=== PATIENT | female | born 1950 | race Caucasian/White ===

== ENCOUNTER 2025-02-10 12:05 | Emergency (ER) | payer MEDICARE, BC ==
[2025-02-10] MEDS: Metoprolol Tartrate 5 MG/5 ML SDV IVPUSH ONE (12:33)
[2025-02-10 12:35] LABS: BASOPHILS ABSOLUTE AUTO 0.1 x10-3/uL (0.0-0.1); BASOPHILS PERCENT AUTO 0.9 % (0.2-1.5); EOSINOPHILS ABSOLUTE AUTO 0.2 x10-3/uL (0.0-0.8); EOSINOPHILS PERCENT AUTO 2.1 % (0.6-8.1); HEMATOCRIT 42.4 % (34.2-48.2); HEMOGLOBIN 14.6 g/dL (11.4-15.5); LYMPHOCYTES ABSOLUTE AUTO 3.1 x10-3/uL (1.0-4.4); MEAN CORPUSCULAR HEMOGLOBIN 29.5 pg (23.9-33.9); MEAN CORPUSCULAR HGB CONC 34.4 g/dL (31.9-34.8); MEAN CORPUSCULAR VOLUME 85.6 fL (76.7-100.5); MEAN PLATELET VOLUME 9.8 fL (7.1-12.4); MONOCYTES ABSOLUTE AUTO 0.6 x10-3/uL (0.3-1.0); MONOCYTES PERCENT AUTO 8.2 % (4.4-15.7); NEUTROPHILS PERCENT AUTO 49.8 % (30.8-76.2); PLATELET COUNT,PLT 216 x10(3)uL (151-488); RED BLOOD CELL COUNT 4.95 x10(6)uL (3.60-5.20); WHITE BLOOD CELL COUNT,WBC 7.9 x10-3/uL (3.0-10.3)
[2025-02-10 12:43] LABS: A/G RATIO 0.8; ALANINE AMINOTRANSFERASE,ALT 24 U/L (12-36); ALBUMIN 3.5 g/dL (3.2-4.6); ALKALINE PHOSPHATASE 112 IU/L (56-112); ASPARTATE AMNIOTRANSFERASE,AST 14 IU/L (5-25); BILIRUBIN TOTAL 0.6 mg/dL (0.1-1.3); BLOOD UREA NITROGEN,BUN 30 mg/dL (7-18); CARBON DIOXIDE,CO2 25 mmol/L (21-32); CHLORIDE,CL 100 mmol/L (100-110); CREATININE 1.2 mg/dL (0.55-1.02); ESTIMATED GFR 48 mL/min (>60); POTASSIUM,K 4.3 mmol/L (3.5-5.3); PROTEIN TOTAL,TP 7.8 g/dL (6.0-8.0); SODIUM,NA 135 mmol/L (135-145)
[2025-02-10 12:44] LABS: GLUCOSE RANDOM 482 mg/dL (80-116)
[2025-02-10 12:45] LABS: INR 0.93 (1.00-1.24); PROTHROMBIN TIME 9.8 sec (9.0-11.1); PTT,PARTIAL THROMBOPLSTIN TIME 22.7 SECONDS (24.4-33.2)
[2025-02-10 12:46] LABS: TROPONIN I 12.5 pg/mL (4.0-60.3)
[2025-02-10] MEDS ORDERED: 50% Dextrose in Water 50 ML Syringe IVPUSH PRN (12:51)
[2025-02-10] MEDS ORDERED: Glucagon,Human Recombinant 1 MG Vial IM PRN (12:51)
[2025-02-10] MEDS: Sodium Chloride 0.9% 1,000 ML IV ONE (12:56)
[2025-02-10] MEDS: Insulin Regular, Human 100 Units/ML 10 ML Vial IV ONE (12:57)
== END 2025-02-10 15:00 | disposition home or self-care (01) ==
LOC: FB.ED 12:05
DX: R07.89 Other chest pain (principal); I10 Essential (primary) hypertension; E11.65 Type 2 diabetes mellitus with hyperglycemia
CPT/HCPCS: 36415; 71045; 80053; 82947; 83690; 84484; 85025; 85610; 85730; 93005; 96361; 96374; 99285; A9270; J3490; J7030